=== PATIENT | male | born 1985 | race Two or more races ===

== ENCOUNTER 2021-11-15 05:11 | Emergency (ER) | payer OTHER ==
[~2021-11-15] VITALS: Ht 177.8 cm; Wt 81.8 kg
[2021-11-15 08:56] LABS: COVID AG,FIA SOURCE NASAL SWAB
[2021-11-15] MEDS ORDERED: MetFORMIN HCL 500 MG TABLET PO ONE (09:45)
[2021-11-15 10:45] VITALS: BP 138/95
[2021-11-15] MEDS ORDERED: METF-1211 PO ×2 (11:20→11:38)
== END 2021-11-15 11:54 ==
LOC: EMS 05:12
DX: E11.9 Type 2 diabetes mellitus without complications (principal); Z20.822 Contact with and (suspected) exposure to COVID-19
CPT/HCPCS: 82948; 82962; 99283